=== PATIENT | female | born 1960 | race Caucasian/White ===

== ENCOUNTER 2018-04-02 17:55 | Emergency (ER) | payer BC ==
[~2018-04-02] VITALS: Ht 170.2 cm; Wt 99.0 kg
[~2018-04-02 17:55] MED LIST: ASPIR-LOW81 MG PO; ASPIRIN325 MG PO; CLEOCIN150 MG PO; CLEOCIN300 MG PO; CLINDAMYCIN PO; COLACE100 MG PO; ENDOCET 5-3251 EACH PO; ESTRACE42.5 GM VG; FLEXERIL10 MG PO; MACRODANTIN50 M1 PO; METOPROLOL SUCC25 MG PO; NAPROSYN500 MG PO; OXYCODONE-ACET1 EACH PO; PERCOCET 5/31 TABLET PO; PLAVIX75 MG PO; POTASSIUM CHLOR8 ME2 PO; POTASSIUM CHLOR8 ME3 PO; SOTALOL80 MG PO; TRAMADOL HCL50 MG PO; VESICARE5 MG PO; VITAMIN D1000 UNIT PO; VITAMIN D2000 UNIT PO; XANAX0.5 MG PO; ZOCOR10 MG PO
[2018-04-02 18:43] LABS: HEMATOCRIT 40.2 % (36.0-46.0); HEMOGLOBIN 13.7 G/DL (11.9-15.5); MCH 31.3 PG (29.0-34.0); MCHC 34.1 G/DL (30.0-36.0); MCV 91.8 FL (83-99); PLATELET COUNT 171 K/uL (156-360); RBC DIS.WIDTH-CV 12.9 % (11.8-14.6); RBC DIS.WIDTH-SD 43.9 % (39-53); RED BLOOD COUNT 4.38 M/uL (3.80-5.20); WHITE BLOOD COUNT 9.7 K/uL (4.1-10.2)
[2018-04-02 19:08] LABS: ALBUMIN 4.5 g/dL (3.2-4.8); CHLORIDE 104 mEq/L (99-109); SODIUM 141 mEq/L (136-147)
[2018-04-02 19:10] LABS: APPEARANCE SL.HAZY ((CLEAR)); BILIRUBIN NEGATIVE; BLOOD SMALL; COLOR YELLOW ((YELLOW)); GLUCOSE (STRIP) NEGATIVE; KETONES 80; LEUKOCYTES TRACE; NITRITE NEGATIVE; PROTEIN (STRIP) NEGATIVE; SPECIFIC GRAVITY 1.028 (1.000-1.030); UROBILINOGEN 0.2 MG/DL (0.2-1.0)
[2018-04-02 19:11] LABS: GLUCOSE 96 mg/dL (70-99); TOTAL PROTEIN 7.3 g/dL (6.4-8.3)
[2018-04-02 19:13] LABS: TOTAL BILIRUBIN 0.5 mg/dL (0.0-1.0)
[2018-04-02 19:14] LABS: ALKALINE PHOSPHATASE 79 IU/L (3-129); CREATININE 0.8 mg/dL (0.6-1.3); GFR ESTIMATE (CALCULATED) > 59 mL/min/
[2018-04-02 19:15] LABS: UREA NITROGEN (BUN) 23 mg/dL (9-23)
[2018-04-02 19:16] LABS: AST (GOT) 27 IU/L (2-34)
[2018-04-02 19:17] LABS: ALT (GPT) 26 IU/L (3-49)
[2018-04-02 19:26] LABS: BACTERIA NONE SEEN /HPF; EPITHELIAL CELLS RARE /HPF; HYALINE CASTS 0-5 /LPF; MUCUS 2+ /LPF; RED BLOOD CELLS 0-5 /HPF (0-5); UCUL ADDED? YES
[2018-04-02 20:18] LABS: LIPASE 38 U/L (1.0-51.0)
[2018-04-02 21:25] LABS: C DIFF TOXIN NEGATIVE (NEGATIVE)
[2018-04-02] MEDS ORDERED: FLAGYL500 MG PO (22:34)
[2018-04-02 23:57] VITALS: BP 135/58
== END 2018-04-02 23:57 | disposition home or self-care (01) ==
LOC: EXP 17:55 → EME 17:55 → EXP 23:57
PROVIDERS: Physician Assistant
DX: K52.9 Noninfective gastroenteritis and colitis, unspecified (principal); K21.9 Gastro-esophageal reflux disease without esophagitis; Z87.440 Personal history of urinary (tract) infections; Z90.49 Acquired absence of other specified parts of digestive tract; Z98.84 Bariatric surgery status; Z85.820 Personal history of malignant melanoma of skin; Z87.442 Personal history of urinary calculi; Z87.891 Personal history of nicotine dependence; Z79.82 Long term (current) use of aspirin; Z88.5 Allergy status to narcotic agent; Z88.0 Allergy status to penicillin; Z88.1 Allergy status to other antibiotic agents; Z88.8 Allergy status to other drugs, medicaments and biological substances
CPT/HCPCS: 74177; 80053; 81003; 83690; 85027; 87086; 87493; 87506; 99281; 99284; J2060; J7030

== ENCOUNTER 2018-04-17 08:01 | Inpatient (IN) | payer BC ==
[~2018-04-17] VITALS: Ht 170.2 cm; Wt 96.4 kg
[~2018-04-17 08:01] MED LIST changes: +FLAGYL500 MG PO; +SOTALOL AF80 MG PO; -SOTALOL80 MG PO
[2018-04-17 08:53] LABS: HEMATOCRIT 38.9 % (36.0-46.0); HEMOGLOBIN 12.9 G/DL (11.9-15.5); MCH 30.9 PG (29.0-34.0); MCHC 33.2 G/DL (30.0-36.0); MCV 93.3 FL (83-99); PLATELET COUNT 157 K/uL (156-360); RBC DIS.WIDTH-CV 14.1 % (11.8-14.6); RBC DIS.WIDTH-SD 48.3 % (39-53); RED BLOOD COUNT 4.17 M/uL (3.80-5.20); WHITE BLOOD COUNT 7.5 K/uL (4.1-10.2)
[2018-04-17 09:01] LABS: ALBUMIN 4.1 g/dL (3.2-4.8)
[2018-04-17 09:02] LABS: CHLORIDE 106 mEq/L (99-109); POTASSIUM 3.9 mEq/L (3.7-5.4); SODIUM 144 mEq/L (136-147)
[2018-04-17 09:04] LABS: GLUCOSE 96 mg/dL (70-99); TOTAL PROTEIN 6.4 g/dL (6.4-8.3)
[2018-04-17 09:06] LABS: TOTAL BILIRUBIN 0.6 mg/dL (0.0-1.0)
[2018-04-17 09:07] LABS: ALKALINE PHOSPHATASE 63 IU/L (3-129)
[2018-04-17 09:08] LABS: CREATININE 0.7 mg/dL (0.6-1.3); GFR ESTIMATE (CALCULATED) > 59 mL/min/
[2018-04-17 09:09] LABS: AST (GOT) 24 IU/L (2-34); UREA NITROGEN (BUN) 11 mg/dL (9-23)
[2018-04-17 09:11] LABS: ALT (GPT) 29 IU/L (3-49); LIPASE 30 U/L (1.0-51.0)
[2018-04-17] MEDS ORDERED: VITAMIN B-121000 MC4 SL (10:56)
[2018-04-17] MEDS ORDERED: CHEWABLE-VITE1 EACH PO (10:57)
[2018-04-17] MEDS ORDERED: PANTOPRAZOLE SO40 MG PO (10:57)
[2018-04-17 15:25] VITALS: BP 103/54
[2018-04-17 23:21] VITALS: BP 110/57
[2018-04-18 06:05] LABS: HEMATOCRIT 34.8 % (36.0-46.0); HEMOGLOBIN 11.3 G/DL (11.9-15.5); MCH 30.5 PG (29.0-34.0); MCHC 32.5 G/DL (30.0-36.0); MCV 94.1 FL (83-99); PLATELET COUNT 132 K/uL (156-360); RBC DIS.WIDTH-CV 14.4 % (11.8-14.6); RBC DIS.WIDTH-SD 49.7 % (39-53); WHITE BLOOD COUNT 3.4 K/uL (4.1-10.2)
[2018-04-18 06:35] LABS: ALBUMIN 3.4 G/DL (3.2-4.8); C-REACTIVE PROTEIN 8.1 MG/L (0-10); CHLORIDE 111 MEQ/L (99-109); CREATININE 0.5 MG/DL (0.6-1.3); GFR ESTIMATE (CALCULATED) > 59 mL/min/; GLUCOSE 76 mg/dL (70-99); PHOSPHORUS 3.3 mg/dL (2.5-4.9); POTASSIUM 3.9 MEQ/L (3.7-5.4); SODIUM 146 MEQ/L (136-147); UREA NITROGEN (BUN) 6 mg/dL (9-23)
[2018-04-18 07:43] VITALS: BP 105/52
[2018-04-18 07:48] LABS: ERTH.SED.RATE 14 MM/HR (0-30)
[2018-04-18 17:00] VITALS: BP 110/56
[2018-04-18 23:56] VITALS: BP 121/58
[2018-04-19 04:43] LABS: C DIFF TOXIN POSITIVE (NEGATIVE)
[2018-04-19 06:40] LABS: BASOPHIL (%) 0.2 % (0-1); EOSINOPHIL (%) 2.9 % (0-5); EOSINOPHIL COUNT 0.1 K/uL (0-0.3); HEMATOCRIT 33.9 % (36.0-46.0); HEMOGLOBIN 11.2 G/DL (11.9-15.5); LYMPHOCYTE (%) 37.4 % (15-42); LYMPHOCYTE COUNT 1.5 K/uL (1.0-2.8); MCH 30.8 PG (29.0-34.0); MCV 93.1 FL (83-99); MONOCYTE (%) 7.8 % (3-12); MONOCYTE COUNT 0.3 K/uL (0-0.8); NEUTROPHIL (%) 51.7 % (45-76); NEUTROPHIL COUNT 2.1 K/uL (1.8-6.4); PLATELET COUNT 131 K/uL (156-360); RBC DIS.WIDTH-CV 14.2 % (11.8-14.6); RBC DIS.WIDTH-SD 48.6 % (39-53); RED BLOOD COUNT 3.64 M/uL (3.80-5.20); WHITE BLOOD COUNT 4.1 K/uL (4.1-10.2)
[2018-04-19 07:09] LABS: CHLORIDE 109 MEQ/L (99-109); CREATININE 0.5 MG/DL (0.6-1.3); GFR ESTIMATE (CALCULATED) > 59 mL/min/; GLUCOSE 65 mg/dL (70-99); POTASSIUM 3.9 MEQ/L (3.7-5.4); SODIUM 144 MEQ/L (136-147); UREA NITROGEN (BUN) 5 mg/dL (9-23)
[2018-04-19 07:15] VITALS: BP 117/55
[2018-04-19 15:15] VITALS: BP 117/56
[2018-04-20 00:08] VITALS: BP 106/51
[2018-04-20 06:13] LABS: BASOPHIL (%) 0.2 % (0-1); EOSINOPHIL (%) 3.2 % (0-5); EOSINOPHIL COUNT 0.1 K/uL (0-0.3); HEMATOCRIT 35.4 % (36.0-46.0); HEMOGLOBIN 11.8 G/DL (11.9-15.5); IMMATURE GRANULOCYTE (%) 0.2 % (0.0-0.7); LYMPHOCYTE (%) 42.3 % (15-42); LYMPHOCYTE COUNT 1.7 K/uL (1.0-2.8); MCH 30.8 PG (29.0-34.0); MCHC 33.3 G/DL (30.0-36.0); MCV 92.4 FL (83-99); MONOCYTE (%) 7.8 % (3-12); MONOCYTE COUNT 0.3 K/uL (0-0.8); NEUTROPHIL (%) 46.3 % (45-76); NEUTROPHIL COUNT 1.9 K/uL (1.8-6.4); PLATELET COUNT 140 K/uL (156-360); RBC DIS.WIDTH-SD 47.8 % (39-53); RED BLOOD COUNT 3.83 M/uL (3.80-5.20); WHITE BLOOD COUNT 4.1 K/uL (4.1-10.2)
[2018-04-20 06:39] LABS: ALBUMIN 3.7 G/DL (3.2-4.8); CHLORIDE 109 MEQ/L (99-109); CREATININE 0.5 MG/DL (0.6-1.3); GFR ESTIMATE (CALCULATED) > 59 mL/min/; GLUCOSE 64 mg/dL (70-99); PHOSPHORUS 3.3 mg/dL (2.5-4.9); POTASSIUM 3.9 MEQ/L (3.7-5.4); SODIUM 145 MEQ/L (136-147); UREA NITROGEN (BUN) 4 mg/dL (9-23)
[2018-04-20 15:45] VITALS: BP 107/57
[2018-04-20 20:51] VITALS: BP 102/51
[2018-04-21 00:25] VITALS: BP 103/51
[2018-04-21 07:05] VITALS: BP 114/53
[2018-04-21 09:39] LABS: HEMOGLOBIN 12.3 G/DL (11.9-15.5); MCH 29.9 PG (29.0-34.0); MCHC 32.4 G/DL (30.0-36.0); MCV 92.5 FL (83-99); PLATELET COUNT 149 K/uL (156-360); RBC DIS.WIDTH-CV 14.2 % (11.8-14.6); RED BLOOD COUNT 4.11 M/uL (3.80-5.20); WHITE BLOOD COUNT 4.7 K/uL (4.1-10.2)
[2018-04-21 10:00] LABS: CHLORIDE 110 MEQ/L (99-109); CREATININE 0.5 MG/DL (0.6-1.3); GFR ESTIMATE (CALCULATED) > 59 mL/min/; GLUCOSE 76 mg/dL (70-99); POTASSIUM 3.8 MEQ/L (3.7-5.4); SODIUM 142 MEQ/L (136-147); UREA NITROGEN (BUN) 6 mg/dL (9-23)
[2018-04-21 16:00] VITALS: BP 102/53
[2018-04-21 23:25] VITALS: BP 108/52
[2018-04-22 06:13] LABS: HEMATOCRIT 41.8 % (36.0-46.0); HEMOGLOBIN 13.6 G/DL (11.9-15.5); MCH 30.3 PG (29.0-34.0); MCHC 32.5 G/DL (30.0-36.0); MCV 93.1 FL (83-99); PLATELET COUNT 172 K/uL (156-360); RBC DIS.WIDTH-CV 14.2 % (11.8-14.6); RBC DIS.WIDTH-SD 48.7 % (39-53); RED BLOOD COUNT 4.49 M/uL (3.80-5.20); WHITE BLOOD COUNT 5.2 K/uL (4.1-10.2)
[2018-04-22 07:15] VITALS: BP 114/62
[2018-04-22] MEDS ORDERED: VANCOCIN 250 M250 MG PO ×2 (09:55→11:05)
== END 2018-04-22 12:31 | disposition home or self-care (01) | DRG 372 ==
LOC: EME 08:01 → EDOF 11:19 → 5EAST 11:19 → ENRESERV 11:25 → 5EAST 14:30
PROVIDERS: Hospitalist; Internal Medicine Gastroenterology; Nurse Practitioner Family; Physician Assistant; Student in an Organized Health Care Education/Training Program
DX: A04.72 Enterocolitis due to Clostridium difficile, not specified as recurrent (principal); K51.00 Ulcerative (chronic) pancolitis without complications; I48.91 Unspecified atrial fibrillation; E78.5 Hyperlipidemia, unspecified; D72.819 Decreased white blood cell count, unspecified; I48.0 Paroxysmal atrial fibrillation; D64.9 Anemia, unspecified; D69.6 Thrombocytopenia, unspecified; Z88.1 Allergy status to other antibiotic agents; Z88.5 Allergy status to narcotic agent; Z88.0 Allergy status to penicillin; Z88.8 Allergy status to other drugs, medicaments and biological substances; Z79.82 Long term (current) use of aspirin; Z90.710 Acquired absence of both cervix and uterus; Z90.49 Acquired absence of other specified parts of digestive tract; Z90.3 Acquired absence of stomach [part of]; Z87.891 Personal history of nicotine dependence; Z79.899 Other long term (current) drug therapy; Z87.442 Personal history of urinary calculi; Z85.820 Personal history of malignant melanoma of skin; Z85.51 Personal history of malignant neoplasm of bladder
CPT/HCPCS: 74177; 80048; 80053; 80069; 83690; 85025; 85027; 85651; 86140; 87177; 87493; 87506; 99281; 99285; J1200; J1644; J1885; J1956; J2405; J7030; S0030